=== PATIENT | female | born 1965 | race African-American/Black ===

== ENCOUNTER 2022-09-27 14:35 | Emergency (ER) | payer BC | END 2022-09-27 16:26 | disposition home or self-care (01) | LOC: CSHERS 14:35 | DX: S89.91XA Unspecified injury of right lower leg, initial encounter (principal); Y93.6A Activity, physical games generally associated with school recess, summer camp and children ==

== ENCOUNTER 2023-04-18 07:30 | Day surgery (SDC) | payer BC ==
[2023-04-16 09:30] VITALS: BMI 30.7
[2023-04-18] MEDS ORDERED: Midazolam HCl 2 mg/2 ml Vial ONE (09:37)
[2023-04-18] MEDS ORDERED: Succinylcholine 200 MG/10 ml SYRINGE FS ONE (09:58)
== END 2023-04-18 10:53 | disposition home or self-care (01) ==
LOC: CSHSDC 07:30
PROVIDERS: ATTEND Internal Medicine Gastroenterology
PROC: 0DJD8ZZ Inspection of Lower Intestinal Tract, Via Natural or Artificial Opening Endoscopic (ICD-10-PCS; principal; 2023-04-18)
PROC: 0DJ08ZZ Inspection of Upper Intestinal Tract, Via Natural or Artificial Opening Endoscopic (ICD-10-PCS; principal; 2023-04-18)
DX: K92.2 Gastrointestinal hemorrhage, unspecified (principal); K64.8 Other hemorrhoids; K44.9 Diaphragmatic hernia without obstruction or gangrene; E78.5 Hyperlipidemia, unspecified; F10.90 Alcohol use, unspecified, uncomplicated; Z86.010 Personal history of colon polyps
CPT/HCPCS: J2250